=== PATIENT | male | born 1970 | race Caucasian/White ===

== ENCOUNTER 2018-07-12 09:19 | Emergency (ER) | payer SELFPAY ==
[2018-07-12] MEDS ORDERED: Ketorolac Tromethamine 30 MG/ML VIAL ONE (10:09)
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
[2018-07-12] MEDS ORDERED: Iopamidol 370 76% 50 ML VIAL FS ONE (12:39)
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
== END 2018-07-12 11:14 | disposition home or self-care (01) ==
LOC: ERS 09:19
DX: S16.1XXA Strain of muscle, fascia and tendon at neck level, initial encounter (principal); S20.211A Contusion of right front wall of thorax, initial encounter; S00.83XA Contusion of other part of head, initial encounter; S00.01XA Abrasion of scalp, initial encounter; V89.2XXA Person injured in unspecified motor-vehicle accident, traffic, initial encounter
CPT/HCPCS: 70450; 71260; 72125; 74177; 96374; J1885

== ENCOUNTER 2018-08-11 18:17 | Emergency (ER) | payer SELFPAY ==
[2018-08-11 18:52] LABS: #Eosinphils 0.1 thou/uL (0.0-0.7); #Lymphocytes 1.4 thou/uL (1.20-3.40); #Monocytes 0.8 thou/uL (0.11-0.59); #Neutrophils 6.3 thou/uL (1.40-6.50); %Basophils 0.5 % (0.0-1.0); %Eosinophils 1.2 % (0.0-10.0); %Lymphocytes 16.2 % (21.0-51.0); %Monocytes 8.7 % (0.0-10.0); %Neutrophils 73.3 % (42.0-75.0); Mean Corpuscular HGB CONC 33.1 g/dL (32.0-36.0); Mean Corpuscular Hemoglobin 33.4 pg (27.0-31.0); Mean Platelet Volume 7.3 fL (7.4-10.4); Platelet Count 164 thou/uL (130-400); RBC Distribution Width 11.9 % (11.5-14.5); White Blood Cell (WBC) Count 8.6 thou/uL (4.8-10.8)
[2018-08-11 19:18] LABS: ALT (SGPT) 23 U/L (8-55); AST (SGOT) 19 U/L (5-34); Albumin 4.1 g/dL (3.5-5.0); Alkaline Phosphatase 67 U/L (40-150); Anion Gap 11 mmol/L (10-20); BUN (Urea Nitrogen) 15 mg/dL (8.9-20.6); Bilirubin, Total 0.5 mg/dL (0.2-1.2); Calc. Creatinine Clearance 0 mL/min (70-130); Calcium 9.2 mg/dL (7.8-10.44); Carbon Dioxide 28 mmol/L (22-29); Chloride 102 mmol/L (98-107); Estimated GFR-MDRD 51; Glucose 102 mg/dL (70-105); Potassium 4.1 mmol/L (3.5-5.1); Protein, Total 7.1 g/dL (6.0-8.3); Sodium 137 mmol/L (136-145)
--- NOTE | 2018-08-11 19:49 | CT ---
NONCONTRAST ENHANCED CT IMAGES ABDOMEN AND PELVIS: 08/11/18 HISTORY: Abdominal pain, 48-year-old male. Noncontrast enhanced CT images of the abdomen and pelvis demonstrate the lung bases to be unremarkabl e. No evidence of free intraperitoneal air seen. The liver and spleen are unremarkable. The gallbladder and pancreas are unremarkable. Adrenal glands are unremarkable. The left kidney demonstrates no definite evidence of masses or lesions. There is nonobstructing lower pole left renal calculus measuring approximately 1 to 2 mm. There is moderate right sided hydroureteronephrosis. There is an obstructing distal right 3 mm ureter al calculus at or just passed the right ureterovesicular junction. There continues to be some moderat e right sided hydronephrosis present. I am not sure if this calculus has recently passed. Atherosclerotic calcification seen in the abdominal aorta. IMPRESSION: 3 mm distal right ureteral calculus or calculus that has just passed into the urinary bladder. The di ameter is approximately 3 mm. There is secondary resulting right sided hydroureteronephrosis. POS: [facility]
[2018-08-11 20:05] LABS: Bilirubin Negative (Negative); Blood, Urine Large (Negative); Clarity CLEAR (Clear); Glucose, Urine (Dipstick) Negative (Negative); Leukocyte Trace (Negative); Nitrite Negative (Negative); Protein, Urine (Dipstick) Trace mg/dL (Neg-Trace); Specific Gravity, Urine 1.029 (1.002-1.036); Urobilinogen 0.2 mg/dL (0.2-1.0)
[2018-08-11 20:09] LABS: Bacteria/HPF None Seen HPF (None Seen); Hyaline Casts/LPF 4-6 HYALINE CAST LPF (0-3 Hyaline); Pathc Cast-AUWi Flag 0.72 (0-2.49); RBC/HPF GREATER THAN 50-TNTC HPF (0-3); Squamous Epithelial 0-3 HPF (0-3)
== END 2018-08-11 20:54 | disposition home or self-care (01) ==
LOC: ERS 18:17
DX: N13.2 Hydronephrosis with renal and ureteral calculous obstruction (principal)
CPT/HCPCS: 36416; 74176; 80053; 81003; 81015; 85025